=== PATIENT | female | born 1975 | race African-American/Black ===

== ENCOUNTER 2016-08-26 09:08 | Emergency (ER) | payer MEDICAID ==
[~2016-08-26] VITALS: Ht 160 cm; Wt 93.0 kg
[2016-08-26] MEDS ORDERED: AMLO2.5T45 PO (09:26)
[2016-08-26 10:05] LABS: DIFFERENTIAL COMMENT 0; EOSINOPHILS % 5.8 % (0.0-5.0); HEMATOCRIT. 33.3 % (36.0-48.0); HEMOGLOBIN. 10.8 g/dL (12.0-16.0); LYMPHOCYTES % 31.5 % (20.0-50.0); MEAN CORPUSCULAR HEMOGLOBIN 25.5 pg (28.0-32.0); MEAN CORPUSCULAR HGB CONC 32.4 g/dL (31.0-37.0); MEAN CORPUSCULAR VOLUME 78.8 fL (81.0-99.0); MEAN PLATELET VOLUME 7.6 fl (7.4-10.4); MONOCYTES % 5.5 % (2.0-8.0); NEUTROPHILS % 56.2 % (40.0-76.0); PLATELET 353 x1000/uL (130-400); RED BLOOD CELL COUNT 4.23 mill/uL (4.2-5.4); RED CELL DISTRIBUTION WIDTH 16.5 % (11.6-14.6); WHITE BLOOD COUNT 5.6 x1000/uL (4.5-11.0)
[2016-08-26 10:13] LABS: PARTIAL THROMBOPLASTIN TIME 23.6 sec (24.0-34.0); PROTHROMBIN TIME 9.9 sec
[2016-08-26 10:22] LABS: ALANINE AMINOTRANSFERASE 35 IU/L (13-61); ALBUMIN 3.4 g/dL (3.4-5.0); ANION GAP 12; CALCIUM 9.1 mg/dL (8.5-10.1); CARBON DIOXIDE 28 mEq/L (21-32); CHLORIDE 105 mEq/L (98-107); INDEX HEMOLYSI 1 (1-3); INDEX ICTERIC 1 (1-4); INDEX LIPEMIC 1 (1-3); LIPASE 125 IU/L (73-393); UREA NITROGEN BLOOD 9 mg/dL (7-21); eGFR > 60 mL/min (>60)
[2016-08-26] MEDS ORDERED: KETOROLAC 30MG/ML VIAL IV ONE (10:30)
[2016-08-26 10:47] LABS: CLARITY URINE CLEAR (CLEAR); COLOR URINE YELLOW (YELLOW); GLUCOSE URINE NEGATIVE (NEGATIVE); KETONES URINE NEGATIVE (NEGATIVE); LEUKOCYTE ESTERASE URINE 1+ (NEGATIVE); NITRITE URINE NEGATIVE (NEGATIVE); OCCULT BLOOD URINE NEGATIVE (NEGATIVE); PROTEIN URINE NEGATIVE (NEGATIVE); SPECIFIC GRAVITY URINE 1.023 (1.005-1.030)
[2016-08-26 10:57] LABS: MUCUS URINE 2+ /lpf (< = 2+); SQUAMOUS EPITHELIAL CELL URINE 3+ /lpf (RARE/1+)
[2016-08-26 10:58] LABS: RBC URINE 0-2 /hpf (0-2)
[2016-08-26 11:00] LABS: BACTERIA URINE TRACE
[2016-08-26 11:06] LABS: *AMPHETAMINES SCREEN URINE NEGATIVE (NEGATIVE); *BARBITURATES SCREEN URINE NEGATIVE (NEGATIVE); *BENZODIAZEPINES SCREEN URINE NEGATIVE (NEGATIVE); *COCAINE SCREEN URINE NEGATIVE (NEGATIVE); CANNABINOID URINE SCREEN NEGATIVE (NEGATIVE); ECSTASY MDMA SCREEN URINE NEGATIVE (NEGATIVE); METHADONE URINE SCREEN NEGATIVE (NEGATIVE); OPIATES URINE SCREEN NEGATIVE (NEGATIVE); PHENCYCLIDINE URINE SCREEN NEGATIVE (NEGATIVE)
[2016-08-26 13:26] VITALS: BP 144/87
== END 2016-08-26 13:50 | disposition home or self-care (01) ==
LOC: ER 10:28
DX: D23.9 Other benign neoplasm of skin, unspecified (principal); D75.1 Secondary polycythemia; D25.9 Leiomyoma of uterus, unspecified; K80.20 Calculus of gallbladder without cholecystitis without obstruction; F17.200 Nicotine dependence, unspecified, uncomplicated; I10 Essential (primary) hypertension; Z88.0 Allergy status to penicillin
CPT/HCPCS: 36415; 74176; 76830; 76856; 80053; 80305; 81001; 81025; 83690; 85025; 85610; 85730; 96374; 99285; J1885; Z7610

== ENCOUNTER 2016-09-26 17:09 | Emergency (ER) | payer OTHER ==
[~2016-09-26] VITALS: Ht 160 cm; Wt 93.0 kg
[~2016-09-26 17:09] MED LIST: AMLO2.5T45 PO
[2016-09-26 18:28] VITALS: BP 151/93
[2016-09-26] MEDS ORDERED: IBUPROFEN 800MG TABLET PO ONE (18:30)
== END 2016-09-26 18:32 | disposition home or self-care (01) ==
LOC: ER 18:11
DX: L02.01 Cutaneous abscess of face (principal); F17.200 Nicotine dependence, unspecified, uncomplicated; I10 Essential (primary) hypertension; Z88.0 Allergy status to penicillin; S00.86XA Insect bite (nonvenomous) of other part of head, initial encounter; Y93.89 Activity, other specified; Y99.8 Other external cause status; Y92.89 Other specified places as the place of occurrence of the external cause
CPT/HCPCS: 99283

== ENCOUNTER 2017-10-26 15:39 | Emergency (ER) | payer OTHER ==
[~2017-10-26] VITALS: Ht 160 cm; Wt 95.0 kg
[2017-10-26 16:36] LABS: BASOPHILS % 1.5 % (0.0-2.0); EOSINOPHILS % 6.1 % (0.0-5.0); HEMATOCRIT. 31.5 % (36.0-48.0); HEMOGLOBIN. 10.2 g/dL (12.0-16.0); MEAN CORPUSCULAR HEMOGLOBIN 24.8 pg (28.0-32.0); MEAN CORPUSCULAR VOLUME 76.6 fL (81.0-99.0); MEAN PLATELET VOLUME 7.6 fl (7.4-10.4); MONOCYTES % 6.3 % (2.0-8.0); NEUTROPHILS % 53.1 % (40.0-76.0); PLATELET 404 x1000/uL (130-400); RED BLOOD CELL COUNT 4.12 mill/uL (4.2-5.4); RED CELL DISTRIBUTION WIDTH 23.2 % (11.6-14.6)
[2017-10-26 16:40] LABS: CHLORIDE 105 mEq/L (98-107)
[2017-10-26 16:59] LABS: PLATELET ESTIMATE SLIGHTLY INCREASED
[2017-10-26 18:30] VITALS: BP 171/105
[2017-10-26 18:46] LABS: CLARITY URINE CLEAR (CLEAR); COLOR URINE YELLOW (YELLOW); KETONES URINE NEGATIVE (NEGATIVE); LEUKOCYTE ESTERASE URINE NEGATIVE (NEGATIVE); NITRITE URINE NEGATIVE (NEGATIVE); OCCULT BLOOD URINE NEGATIVE (NEGATIVE); PROTEIN URINE NEGATIVE (NEGATIVE); SPECIFIC GRAVITY URINE 1.025 (1.005-1.030)
== END 2017-10-26 18:45 | disposition left against medical advice (07) ==
LOC: ER 16:30
DX: I10 Essential (primary) hypertension (principal)
CPT/HCPCS: 36415; 80048; 81003; 81025; 85025; 99284

== ENCOUNTER 2018-12-21 10:49 | Emergency (ER) | payer MEDICAID, MEDICARE, OTHER ==
[~2018-12-21] VITALS: Ht 160 cm; Wt 91.0 kg
[2018-12-21 12:07] LABS: BASOPHILS % 0.5 % (0.0-2.0); EOSINOPHILS % 3.4 % (0.0-5.0); HEMATOCRIT. 34.7 % (36.0-48.0); HEMOGLOBIN. 11.5 g/dL (12.0-16.0); LYMPHOCYTES % 31.6 % (20.0-50.0); MEAN CORPUSCULAR HEMOGLOBIN 26.9 pg (28.0-32.0); MONOCYTES % 5.3 % (2.0-8.0); NEUTROPHILS % 59.2 % (40.0-76.0); PLATELET 318 x1000/uL (130-400); RED BLOOD CELL COUNT 4.29 mill/uL (4.2-5.4); RED CELL DISTRIBUTION WIDTH 19.7 % (11.6-14.6)
[2018-12-21 12:14] LABS: CHLORIDE 105 mEq/L (98-107); INR 0.9; PROTHROMBIN TIME 9.7 sec (9.6-11.0)
[2018-12-21 15:22] VITALS: BP 155/82
== END 2018-12-21 15:30 | disposition home or self-care (01) ==
LOC: ER 10:49
DX: N93.8 Other specified abnormal uterine and vaginal bleeding (principal); N85.00 Endometrial hyperplasia, unspecified; D25.9 Leiomyoma of uterus, unspecified
CPT/HCPCS: 36415; 76830; 76856; 81025; 86850; 86900; 99284